=== PATIENT | female | born 1975 | race Caucasian/White ===

== ENCOUNTER 2017-08-01 14:33 | Emergency (ER) | payer OTHER ==
[~2017-08-01] VITALS: Ht 162.6 cm; Wt 60.0 kg
[2017-08-01 14:35] VITALS: BP 102/64; PULSE 89; RESP 12; TEMP 98.2; O2SAT 99
[2017-08-01] MEDS ORDERED: BACT800T5 PO (15:05)
--- NOTE | 2017-08-01 15:05 | PD ---
HPI Chief Complaint: Skin Problem Time Seen by Provider: 14:51 Travel History International Travel<30 days: No Contact w/Intl Traveler<30days: No Traveled to known affect area: No History of Present Illness HPI 41-year-old female arrives here complaining of 2 days of rash on the dorsal aspect of the DRUJ on the right side with a similar rash in the region of the distal humerus/antecubital fossa on the right side. No fever. She reports living in a sober house now with multiple other women. No similar prior episode. She reports some itchiness in mild pain. She denies any insect bites that she can remember. PFSH Past Medical History ?: Not LMP: 07/30/17 Social History Tobacco Use: Yes Allergies-Medications (Allergen,Severity, Reaction): Coded Allergies: No Known Allergies (Verified Allergy, Unknown, 08/01/17) Review of Systems General / Constitutional: No: Fever Respiratory: No: Cough, Shortness of Breath Physical Exam Narrative GENERAL: Well-nourished well-developed 41-year-old female no acute distress SKIN: Warm and dry. There is about 3 cm of mild hyperpigmentation of the DRUJ somewhat circumferential. Similar process is noted again in the region of the medial somewhat more proximal aspect of the right arm also about 3 cm round, well demarcated. HEAD: Normocephalic. EYES: No scleral icterus. No injection or drainage. MUSCULOSKELETAL: No cyanosis, or edema. BACK: Nontender without obvious deformity. No CVA tenderness. Data Data Last Documented VS Vital Signs Date Time Temp Pulse Resp B/P (MAP) Pulse Ox O2 Delivery O2 Flow Rate FiO2 08/01/17 14:35 98.2 89 12 102/64 (77) 99 VS reviewed [facility] Medical Decision Making Medical Screen Exam Complete: Yes Emergency Medical Condition: Yes Medical Record Reviewed: Yes Differential Diagnosis MRSA, insect bite, urticaria Narrative Course Patient lives in a sober living house, potentially risk factor for MRSA. Bactrim DS. Return precautions discussed. Diagnosis Primary Impression: Rash Additional Impression: Cellulitis Qualified Codes: L03.113 - Cellulitis of right upper limb Med/Other Pt SpecificInfo: Prescription(s) given Scripts Sulfamethoxazole-Trimethoprim (Bactrim DS) 800-160 Mg Tab 1 TAB PO BID for Infection, #14 TAB 0 Refills Prov: Jose Shoemaker MD 08/01/17 Disposition: 01 DISCHARGE HOME Condition: Stable Jose Shoemaker MD Aug 01, 2017 15:05
== END 2017-08-01 15:10 | disposition home or self-care (01) ==
LOC: NEPD 14:33
DX: L03.113 Cellulitis of right upper limb (principal); Z72.0 Tobacco use
CPT/HCPCS: 99283

== ENCOUNTER 2017-08-05 08:46 | Emergency (ER) | payer OTHER ==
[~2017-08-05] VITALS: Ht 160 cm; Wt 61.1 kg
[~2017-08-05 08:46] MED LIST: BACT800T5 PO
[2017-08-05 08:50] VITALS: BP 134/70; PULSE 75; RESP 18; TEMP 97.7; O2SAT 98
[2017-08-05] MEDS ORDERED: DIPH25CA PO (09:18)
[2017-08-05] MEDS ORDERED: HYDR-4204 TOPICAL (09:18)
--- NOTE | 2017-08-05 09:23 | PD ---
HPI Chief Complaint: Skin Problem Time Seen by Provider: 09:12 Travel History International Travel<30 days: No Contact w/Intl Traveler<30days: No Traveled to known affect area: No History of Present Illness HPI 41 year old female here with multiple pruritic lesions to her right upper extremity and left lower extremity. She was treated on 08/01/17 for possible insect bite/cellulitis to the right hand with Bactrim DS. She reports since that time she's developed several more lesions. Denies fever or chills. Denies spreading erythema. Severity is mild. PFSH Past Medical History Medical History: Denies Significant Hx ?: Not Social History Alcohol Use: No Tobacco Use: Yes Substance Use: No Allergies-Medications (Allergen,Severity, Reaction): Coded Allergies: No Known Allergies (Verified Allergy, Unknown, 08/05/17) Reported Meds & Prescriptions Reported Meds & Active Scripts Active Ala-Sourav Topical (Hydrocortisone (Topical)) 2.5% Cream 1 Applic TOPICAL DIRECTED Diphenhydramine (Diphenhydramine HCl) 25 Mg Cap 25 Mg PO Q6H PRN Bactrim DS (Sulfamethoxazole-Trimethoprim) 800-160 Mg Tab 1 Tab PO BID Review of Systems Except as stated in HPI: all other systems reviewed are Neg General / Constitutional: No: Fever Eyes: No: Visual changes HENT: No: Headaches Cardiovascular: No: Chest Pain or Discomfort Respiratory: No: Shortness of Breath Gastrointestinal: No: Abdominal Pain Genitourinary: No: Dysuria Physical Exam Narrative GENERAL: Alert female well-appearing. SKIN: Warm and dry. Multiple erythematous well demarcated lesions to the right hand and left lower extremity. These appear to be insect bites. No surrounding cellulitis or lymphangitis. No fluctuance or induration. HEAD: Normocephalic. EYES: No injection or drainage. NECK: Supple, trachea midline. MUSCULOSKELETAL: No cyanosis, or edema. Data Data Last Documented VS Vital Signs Date Time Temp Pulse Resp B/P (MAP) Pulse Ox O2 Delivery O2 Flow Rate FiO2 08/05/17 08:50 97.7 75 18 134/70 (91) 98 Orders Orders Ed Discharge Order (08/05/17 09:23) MDM Medical Decision Making Medical Screen Exam Complete: Yes Emergency Medical Condition: Yes Differential Diagnosis abscess, MRSA, insect bite, urticaria Narrative Course 41 year old female here with multiple pruritic lesions to her right upper extremity and left lower extremity. She was treated on 08/01/17 for possible insect bite/cellulitis to the right hand with Bactrim DS. She reports since that time she's developed several more lesions. These appear to be insect bites. They do not appear to be infectious. Patient is scratching at theses lesions throughout her exam. Vital signs are stable. She denies fever or chills. Diagnosis Primary Impression: Insect bite Qualified Codes: W57.XXXA - Bitten or stung by nonvenomous insect and other nonvenomous arthropods, initial encounter Referrals: [facility] Additional Instructions: Return to ED if he developed new or worsening symptoms which would include increased redness, swelling, fever or chills Scripts Hydrocortisone (Topical) (Ala-Sourav Topical) 2.5% Cream 1 APPLIC TOPICAL DIRECTED for Inflammation, #1 TUBE 0 Refills Prov: Iva Degroot 08/05/17 Diphenhydramine (Diphenhydramine) 25 Mg Cap 25 MG PO Q6H Y for ALLERGIES, #30 CAP 0 Refills Prov: Iva Degroot 08/05/17 Disposition: 01 DISCHARGE HOME Condition: Stable Iva Degroot Aug 05, 2017 09:23
== END 2017-08-05 09:34 | disposition home or self-care (01) ==
LOC: PHEFT 08:46
DX: S40.861A Insect bite (nonvenomous) of right upper arm, initial encounter (principal); S80.862A Insect bite (nonvenomous), left lower leg, initial encounter; W57.XXXA Bitten or stung by nonvenomous insect and other nonvenomous arthropods, initial encounter; Z72.0 Tobacco use
CPT/HCPCS: 99284